=== PATIENT | female | born 1975 | race African-American/Black ===

== ENCOUNTER 2020-10-29 00:56 | Outpatient (CLI) | payer BC, SELFPAY ==
[2020-10-29 19:06] LABS: SARS-CoV-2 RNA PCR Negative
== END 2020-10-29 00:57 | disposition home or self-care (01) ==
LOC: ANHCOVIDDT 00:57
PROVIDERS: PCP Family Medicine; Visit Provider Internal Medicine Critical Care Medicine
DX: R68.89 Other general symptoms and signs (principal); Z20.822 Contact with and (suspected) exposure to COVID-19
CPT/HCPCS: C9803; U0003

== ENCOUNTER 2020-10-31 08:43 | Outpatient (CLI) | payer BC, SELFPAY ==
--- NOTE | 2020-12-07 12:14 | WPDSLEEPSTUD ---
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 She constantly snores and is constantly loud enough that others complain about it. She frequently awakens at night with heartburn, belching or coughing. She occasionally awakens from sleep feeling short of breath. She frequently has trouble sleeping with a cold, frequently wakes up gasping for breath during the night. She occasionally has breathing problems at night observed by others. She frequently sweats excessively at night. She never notices her heart pounding or beating irregularly at night. She frequently falls asleep during the day, occasionally involuntarily and occasionally while driving. She does not fall asleep while exerting physical effort. She does not have loss of muscle tone with strong emotion. 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 She does not feel paralyzed on waking or falling asleep. She occasionally has vivid dreamlike scenes upon awakening or falling asleep. She never feels afraid to go to sleep. She does not have nightmares. She rarely remembers her dreams. She occasionally has racing thoughts. She occasionally feels sad or depressed. She frequently has anxiety. She frequently has muscular tension. She frequently notices parts of her body jerking. She occasionally kicks at night. She frequently has Crohn in aching feelings in her legs and frequently has leg pain at night. She does not have morning jaw pain. She does not grind her teeth during sleep. She frequently is bothered by pain during the day, is awakened by pain at night, wakes up feeling stiff in the morning with sore achy muscles. She occasionally wakes up with pain in the neck and spine. She has morning headaches, memory problems, insomnia problems and difficulties with concentration. Normal bedtime is 8:00 a.m. during the week. It takes a variable amount of time for her to fall asleep, sometimes quickly and sometimes longer. She typically wakes up 3 times after falling asleep. She will stay awake for 10-20 minutes. When she wakes up she will watch television or scrotal on her phone. She wakes up at 1:00 p.m. during the week. She estimates 4-6 hours of sleep. On the weekends she goes to bed at 10:00 p.m. and wakes up at 4:00 a.m.. She works 3rd shift during the week and returns to her usual schedule on the weekends. She often takes naps. A short nap may be refreshing. She is usually drowsy for 2 hours after waking. She feels better in the afternoon compared to the morning. Habits: quit smoking tobacco 7 years ago. Caffeine 2 cups a day. No alcohol or recreational drugs. [facility] Family History Family History Mother Hypertension Grandparent Family history of cardiovascular disease Family history of malignant neoplasm of thyroid Social History Social History Smoking status: Former smoker Smoking end date: 10/19/12 Alcohol intake: current Medications Home Medications Medication Instructions Recorded Confirmed Type levofloxacin 500 mg tablet 500 mg PO DAILY #10 tablet 12/21/19 12/21/19 Rx methylprednisolone 4 mg tablets in See Rx Instructions PO PER PKG DIR 12/21/19 12/21/19 Rx a dose pack #21 each Sleep Procedure This test was perfor
[2020-12-07 12:37] VITALS: BMI 33.6
== END 2020-10-31 08:44 | disposition home or self-care (01) ==
LOC: ANHCSM 08:44
PROVIDERS: PCP Family Medicine; Visit Provider Family Medicine
DX: G47.33 Obstructive sleep apnea (adult) (pediatric) (principal)
CPT/HCPCS: 95811

== ENCOUNTER 2021-07-23 16:08 | Outpatient (CLI) | payer BC, SELFPAY ==
--- NOTE | ~2021-07-23 | XR_ITS ---
XR lumbar spine 2-3V DATE: 07/23/2021 16:34 INDICATION: Low back pain TECHNIQUE: AP, lateral, coned lateral lumbosacral views COMPARISON: None FINDINGS: No fracture or spondylolisthesis. The lumbar pedicles are intact. There is moderate degenerative disc disease at T12-L1. There is mild loss of height at L5-S1. The sacroiliac joints are intact. IMPRESSION: Mild degenerative change Reviewed, dictated and finalized at location A. IMPRESSION: Mild degenerative change
--- NOTE | ~2021-07-23 | XR_ITS ---
XR hip RT min 3V w AP pelvis DATE: 07/23/2021 16:34 INDICATION: Right hip pain TECHNIQUE: AP pelvis. AP, lateral, cross table lateral views of right hip COMPARISON: None FINDINGS: No pelvic fracture or bone destruction. The pubic symphysis and sacroiliac joints are inta ct. There is bilateral hip osteoarthritis, right greater than left. IMPRESSION: Bilateral hip osteoarthritis, right greater than left Reviewed, dictated and finalized at location A.
== END 2021-07-23 16:09 | disposition home or self-care (01) ==
LOC: ANHIMG 16:12
PROVIDERS: PCP Family Medicine; Visit Provider Family Medicine
DX: M25.551 Pain in right hip (principal); M54.50 Low back pain, unspecified; M16.0 Bilateral primary osteoarthritis of hip
CPT/HCPCS: 72100; 73502

== ENCOUNTER 2021-10-28 15:45 | Outpatient (RCR) | payer BC, SELFPAY ==
--- NOTE | 2021-08-21 14:32 | PTOPEVAL ---
Thank you for referring Sarah Beth Frederick to [facility].? The patient is scheduled to be seen for therapy?2 x/week for 4 weeks. Please review, sign, date and return this plan of care KELSEY. I agree with and certify that the following plan of care is medically necessary. Referring Physician Date Attending Provider: Tammie Lawrence, DO Diagnosis right low back and right hip Additional Evaluation Detail back pain due to herniated disc 2012 with therapy. She does not perform her HEP. chiro last year and February to May 2021, but no relief. She went to [facility] for 2 wks without improve improved. She is having increased pain with walking, stting, lifting or ADL's. C/o soreness without juice tester. C/o constant right hip pain with knee and leg pain/tightness. Subjective Information She has been having increased Query Text:As Reported By Patient/ right hip pain for 1 yr. Since Family she started a different job at work. She has worked at [employer] for 22 yrs. Her job required her to lift 35-50# 30x/day with walking 6 miles a day when her hip started hurting. Diagnostic Tests X-Rays For This Problem Yes: mild OA of hip and back Previous Treatments Previous Treatments For This Problem yes Pain Assessment Right Lower Back Reported Pain Level 3 Pain Description Aching,Radiating,Shooting, Tender on Palpation,Tightness Pain Frequency Chronic,Continuous Lowest Pain Intensity 3 Greatest Pain Intensity 6 Right Hip(s) Reported Pain Level 6 Pain Description Aching,Shooting,Soreness, Tender on Palpation Pain Frequency Chronic,Continuous Lowest Pain Intensity 6 Greatest Pain Intensity 8 Pain Aggravating Factors ADL's,Exercise/Activity, Lifting,Prolonged Position, Sitting,Walking,Weight Bearing /Standing Cervical and Lumbar ROM Lumbar ROM Lumbar Flexion Active Mid Crane:Hands to: Lateral Flexion distal thigh:Active Hands to: Lumbar Comments trunk shift to right with flex motion, performs with hip
--- NOTE | 2021-09-11 10:47 | PCPTNOTE ---
Patient called & cancelled scheduled appointment this date due to being sick.
--- NOTE | 2021-09-18 12:41 | PTOPEVAL ---
Physical therapy progress note Thank you for referring Sarah Beth Frederick to [facility].? Sarah Beth has attended 7 therapy visits to address her back and hip pain. She is progressing towards her therapy goals. See summary below for updated information. The patient is scheduled to be seen for therapy? 2 x/week for 4 weeks. Please review, sign, date and return this plan of care KELSEY. I agree with and certify that the following plan of care is medically necessary. Referring Physician Date Attending Provider: Tammie Lawrence, Diagnosis right low back and right hip Additional Evaluation Detail back pain due to herniated disc 2013 with therapy. She does not perform her HEP. chiro last year and February to May 2021, but no relief. She went to [facility] for 2 wks without improve improved. She is having increased pain with walking, stting, lifting or ADL's. 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 C/o constant right hip pain with knee and leg pain/tightness. Subjective Information She has been having increased Query Text:As Reported By Patient/ right hip pain for 1 yr. But Family does it feel it is better with therapy. She did get the gym last week. She did more activities of walking and decorating with increased pain . She continues to have increased pain at work. She performs HEP daily after work. Pain Assessment Right Lower Back Reported Pain Level 3 Pain Description Aching,Radiating,Shooting, Tender on Palpation,Tightness Pain Frequency Chronic,Continuous Lowest Pain Intensity 3 Greatest Pain Intensity 5 Pain Aggravating Factors ADL's,Exercise/Activity, Lifting,Walking Right Hip(s) Reported Pain Level 3 Pain Description Aching,Shooting,Soreness, Tender on Palpation Pain Frequency Chronic,Continuous Lowest Pain Intensity 3 Greatest Pain Intensity 5 Pain Aggravating Factors ADL's,Exercise/Activity, Lifting,Prolonged Position, Sitting,Walking,Weight Bearing /Standing Cervical and Lumbar ROM Lumbar ROM Lumbar Fl
--- NOTE | 2021-10-01 12:32 | PCPTNOTE ---
Patient reports she wont be able to make it in due to work.
--- NOTE | 2021-10-03 15:23 | PCPTNOTE ---
Patient was a no call/no show at this time. Left a message on the voicemail.
--- NOTE | 2021-10-09 16:08 | PCPTNOTE ---
Patient called & cancelled scheduled appointment this date due to family emergency.
--- NOTE | 2021-10-16 15:54 | PTOPEVAL ---
Physical Therapy Progress Note Thank you for referring Sarah Beth Frederick to [facility].? Sarah Beth has attended 12 therapy visits to address her right hip and back limitations. She is progressing slowly towards her improved function, strength and pain. She continues to present with hip dysfunction which is not responding to therapy. Recommend she f/u with her MD as well as continue with therapy services. The patient is scheduled to be seen for therapy? 1 x/week for 4 weeks. Please review, sign, date and return this plan of care KELSEY. I agree with and certify that the following plan of care is medically necessary. Referring Physician Date Attending Provider: Tammie Lawrence, DO Diagnosis right low back and right hip Additional Evaluation Detail back pain due to herniated disc 2012 with therapy. chiro last year and February to May 2021, but no relief. Subjective Information She is not consistent with Query Text:As Reported By Patient/ performing her HEP this week Family due to work, otherwise she is performing HEP and self manual occupational therapy assist for tissue restriction. She reports increased stiffness vs pain in her back region. Increased pain with standing from seated position from any surfaces. She has increased pain with all day cleaning task and with work related task. Pain Assessment Self Report Pain Assessment Right Lower Back Reported Pain Level 1 Lowest Pain Intensity 1 Greatest Pain Intensity 4 Right Hip(s) Reported Pain Level 0 Pain Description Sharp Pain Frequency Chronic,Continuous Lowest Pain Intensity 0 Greatest Pain Intensity 3 Pain Aggravating Factors Walking Cervical and Lumbar ROM Lumbar ROM Lumbar Flexion Active Ankle:Hands to: Lateral Flexion lateral knee joint line:Active Hands to: Lumbar Comments 75% trunk ext no pain with flex and lateral flex, slight pain with ext Lower Extremity Muscle Strength Testing General Lower Extremity Strength Gross Lower Extremity Strength right hip abduction and abduction 3/5 left hip abduction 3+/5, sid hip adduction 3+/5 Muscle Length Testing Muscle Length Testing Benedict Test Shortened Muscles Short (R) Iliopsoas,Short (L) Iliopsoas,Short (R) Rectus Femoris,Kylie
--- NOTE | 2021-10-28 16:22 | PCPTNOTE ---
Patient did not show up for scheduled appointment this date; called and left voicemail for reminder on next appointment ThursdayNovember 04 @ 13:15
--- NOTE | 2021-11-04 12:30 | PCPTNOTE ---
Patient called & cancelled scheduled appointment this date due to having to work.
--- NOTE | 2021-11-12 13:20 | PCPTNOTE ---
Admitting Provider: Attending Provider: Tammie Lawrence DO Patient:Sarah Beth Frederick Date of :1975 Physical Therapy Discharge Note Patient has not returned for any further treatments since 10/21/2021, therefore she will be discharged at this time. Patient?s initial visit was on 08/21/2021 13:00 and she had a total of 13 visits with 6 missed visits. The goals have been partially met. She has been provided a HEP to perform to maintain her gains. Thank you for referring this patient to [facility]. Please review, sign, date and return this discharge summary KELSEY. I have been updated about the patient's current status and I agree with discharge from the above service at this time. Referring Physician Date
== END 2021-11-12 15:44 | disposition home or self-care (01) ==
LOC: ANHPT 15:45
PROVIDERS: PCP Family Medicine; Visit Provider Family Medicine
DX: M25.551 Pain in right hip (principal); M54.50 Low back pain, unspecified
CPT/HCPCS: 97014; 97110; 97112; 97140; 97162; 97530; G0283

== ENCOUNTER 2022-05-12 09:29 | Outpatient (CLI) | payer BC, SELFPAY ==
--- NOTE | ~2022-05-12 | XR_ITS ---
EXAMINATION: XR chest 2V 05/12/2022 09:46 INDICATION: Recent upper respiratory infection PROCEDURE: 2 view chest COMPARISON: No prior studies for comparison. FINDINGS: The lungs are clear. The cardiomediastinal silhouette is within normal limits. There are no pleural effusions. There is no pneumothorax suspected. Elevated right diaphragm. IMPRESSION: 1: NO ACUTE CARDIOPULMONARY DISEASE. Reviewed, dictated and finalized at location A.
== END 2022-05-12 09:30 | disposition home or self-care (01) ==
PROVIDERS: PCP Family Medicine; Visit Provider Family Medicine
DX: R05.9 Cough, unspecified (principal)
CPT/HCPCS: 71046

== ENCOUNTER 2022-10-21 15:37 | Outpatient (CLI) | payer BC, SELFPAY ==
--- NOTE | ~2022-10-21 | MM_ITS ---
EXAMINATION: MM screening trey BI w nilson HISTORY: Screening mammogram TECHNIQUE: Craniocaudal and mediolateral oblique 3-D tomosynthesis images were obtained and synthetic 2-D images were generated. CAD analysis was submitted and interpreted. COMPARISON: 05/31/2019 BREAST PARENCHYMAL COMPOSITION: There are scattered areas of fibroglandular density. FINDINGS: No suspicious mass, calcification, or architectural distortion are identified in either devika ast to suggest malignancy. There has been no suspicious interval change. IMPRESSION: 1. No mammographic evidence of malignancy. 2. Recommend routine screening mammography in one year. BI-RADS Category 1: Negative Reviewed, dictated and finalized at location A. PER SIZER
== END 2022-10-21 15:38 | disposition home or self-care (01) ==
PROVIDERS: PCP Family Medicine; Visit Provider Obstetrics & Gynecology Gynecology
DX: Z12.31 Encounter for screening mammogram for malignant neoplasm of breast (principal)
CPT/HCPCS: 77063; 77067